=== PATIENT | female | born 1960 | race Caucasian/White ===

== ENCOUNTER 2022-12-09 10:50 | Outpatient (CLI) | payer OTHER, SELFPAY ==
--- NOTE | ~2022-12-09 | XR_ITS ---
EXAMINATION:XR_CERV2-3V_CR DATE: 12/09/2022 11:02 INDICATION: Neck pain TECHNIQUE: AP, lateral, and lateral swimmers views of the cervical spine are provided. COMPARISON: None FINDINGS: There is reversal of the normal cervical lordosis. There are 2 mm of retrolisthesis of C5 o n C6. The odontoid process is intact. No fracture is identified. There is moderate loss of interverte bral disc space height at C5-C6 and C6-7. Small degenerative osteophytes project from the anterior en dplates of multiple vertebral bodies. There is multilevel moderate facet and uncovertebral joint oste oarthritis. Prevertebral soft tissues are normal. IMPRESSION: 1. Moderate cervical spondylosis without acute findings Reviewed, dictated and finalized at location L.
== END 2022-12-09 10:51 | disposition home or self-care (01) ==
LOC: ANHBWCIMG 10:51
PROVIDERS: PCP Family Medicine; Visit Provider Nurse Practitioner Family
DX: M47.892 Other spondylosis, cervical region (principal)
CPT/HCPCS: 72040

== ENCOUNTER 2024-03-07 10:09 | Outpatient (CLI) | payer MEDICARE, SELFPAY ==
--- NOTE | ~2024-03-07 | XR_ITS ---
XR chest 2V 03/07/2024 10:17 Indication: Cough and congestion for 2 months Procedure: 2 view chest Comparison: No prior studies for comparison. Findings: Right basilar infiltrates, suspicious for pneumonia. Heart size normal. No pneumothorax. Impression: 1: Right basilar infiltrates, suspicious for pneumonia. Reviewed, dictated and finalized at location B. Impression: 1: Right basilar infiltrates, suspicious for pneumonia.
== END 2024-03-07 10:10 | disposition home or self-care (01) ==
LOC: ANHBWCIMG 10:11
PROVIDERS: PCP Family Medicine; Visit Provider Nurse Practitioner Family
DX: R05.9 Cough, unspecified (principal); R91.8 Other nonspecific abnormal finding of lung field
CPT/HCPCS: 71046

== ENCOUNTER 2024-03-15 15:13 | Outpatient (CLI) | payer MEDICARE, SELFPAY ==
--- NOTE | ~2024-03-15 | XR_ITS ---
XR hand RT min 3V Ordering provider: Chino Eddy MD History: . chronic rt 1st IP jt/ pad of thumb pain, trouble gripping . Comparison: None. FINDINGS: BONES: No acute fracture or dislocation. JOINT SPACES: Early osteoarthritic changes of the first carpometacarpal joint. SOFT TISSUES: Normal. IMPRESSION: No acute osseous abnormality right hand. Reviewed, dictated and finalized at location A.
[2024-03-15 19:18] LABS: Alanine Aminotransferase 29 U/L (6-35); Albumin Level 4.7 g/dL (3.5-5.1); Alkaline Phosphatase 65 U/L (38-126); Anion Gap 10 mmol/L (4-12); Aspartate Amino Transferase 65 U/L (14-36); Bilirubin,Total 0.4 mg/dL (0.2-1.3); Blood Urea Nitrogen 17 mg/dL (7-17); Calcium 9.3 mg/dL (8.4-10.2); Carbon Dioxide 30 mmol/L (22-30); Chloride 98 mmol/L (98-107); Estimated Glomerular Filt Rate > 60; Glucose 84 mg/dL (65-110); Sodium 138 mmol/L (137-145)
[2024-03-15 20:21] LABS: Hematocrit 41.9 % (37.0-47.0); Hemoglobin 13.7 g/dL (12.0-15.0); Mean Corpuscular HGB Conc 32.7 g/dl (32-36); Mean Corpuscular Hemoglobin 29.8 pg (26-34); Mean Corpuscular Volume 91.3 fl (80-100); Mean Platelet Volume 9.3 fl (7.4-10.4); Platelet Count Result 308 k/mm3 (150-375); Red Blood Count 4.59 M/mm3 (4.2-5.4); Red Cell Distribution Width 12.2 % (11.5-14.5); White Blood Count 10.9 K/mm3 (4.5-10.0)
== END 2024-03-15 15:14 | disposition home or self-care (01) ==
PROVIDERS: PCP Family Medicine; Visit Provider Family Medicine
DX: F06.4 Anxiety disorder due to known physiological condition (principal); F41.0 Panic disorder [episodic paroxysmal anxiety]; Z00.00 Encounter for general adult medical examination without abnormal findings; I10 Essential (primary) hypertension; R79.89 Other specified abnormal findings of blood chemistry; T78.40XA Allergy, unspecified, initial encounter; Z12.11 Encounter for screening for malignant neoplasm of colon; M79.646 Pain in unspecified finger(s)
CPT/HCPCS: 36415; 73130; 80053; 85027

== ENCOUNTER 2024-06-13 09:16 | Outpatient (CLI) | payer MEDICARE, SELFPAY | END 2024-06-13 09:17 | disposition home or self-care (01) | LOC: ANHBWCLAB 09:18 | PROVIDERS: PCP Family Medicine; Visit Provider Obstetrics & Gynecology Gynecology | DX: E55.9 Vitamin D deficiency, unspecified (principal) | CPT/HCPCS: 36415; 82306 ==

== ENCOUNTER 2024-06-21 12:46 | Outpatient (CLI) | payer MEDICARE, SELFPAY ==
--- NOTE | ~2024-06-21 | XR_ITS ---
Clinical Indication: Cough PA and lateral views of the chest: Comparison: 03/07/2024 Findings: The lungs are clear, without evidence of focal consolidation or pleural effusion. Cardiome diastinal silhouette is within normal limits. Bones and soft tissues are unremarkable. Impression: Normal chest. Reviewed, dictated and finalized at location . 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
== END 2024-06-21 12:47 | disposition home or self-care (01) ==
PROVIDERS: PCP Family Medicine; Visit Provider Nurse Practitioner Family
DX: R05.9 Cough, unspecified (principal)
CPT/HCPCS: 71046

== ENCOUNTER 2024-07-04 09:52 | Outpatient (CLI) | payer MEDICARE, SELFPAY ==
[2024-07-04 18:42] LABS: Alanine Aminotransferase 21 U/L (6-35); Albumin Level 4.4 g/dL (3.5-5.1); Alkaline Phosphatase 56 U/L (38-126); Aspartate Amino Transferase 64 U/L (14-36); Bilirubin,Total 0.7 mg/dL (0.2-1.3); Cholesterol 190 mg/dL (0-200); HDL Direct 51 mg/dL; Triglycerides 104 mg/dL (<150)
[2024-07-04 18:53] LABS: LDL Cholesterol Direct 100 mg/dL
== END 2024-07-04 09:53 | disposition home or self-care (01) ==
PROVIDERS: PCP Family Medicine; Visit Provider Family Medicine
DX: R74.01 Elevation of levels of liver transaminase levels (principal)
CPT/HCPCS: 36415; 80061; 80076

== ENCOUNTER 2024-07-09 11:46 | Outpatient (CLI) | payer MEDICARE, SELFPAY ==
[2024-07-09 13:01] LABS: Hepatitis B Surface Antigen Negative (Negative)
[2024-07-09 13:19] LABS: Hepatitis C Virus Antibody Negative (Negative)
[2024-07-09 14:18] LABS: HAV RESULT Negative (Negative); Hepatitis B Core IgM Result Negative (Negative)
== END 2024-07-09 11:47 | disposition home or self-care (01) ==
LOC: ANHLAB 11:47
PROVIDERS: PCP Family Medicine; Visit Provider Family Medicine
DX: R74.01 Elevation of levels of liver transaminase levels (principal)
CPT/HCPCS: 36415; 80074

== ENCOUNTER 2024-07-26 10:10 | Outpatient (CLI) | payer MEDICARE, SELFPAY ==
--- NOTE | ~2024-07-26 | US_ITS ---
EXAMINATION: US abdomen limited DATE: 07/26/2024 10:52 INDICATION: Abnormal liver function tests. TECHNIQUE: Multiple grayscale and Doppler ultrasound images of the abdomen were obtained. COMPARISON: None FINDINGS: The visualized portions of the head, body, and tail of the pancreas are normal. There are 1 3 mm and 9 mm hyperechoic masses in the liver. There is a 5 mm polyp in the gallbladder, likely a jose ign cholesterol polyp needing no follow-up. No visible gallstones. No gallbladder wall thickening or sonographic Lopez sign. The common duct is normal and measures 5 mm. There is normal flow in main po rtal vein. IMPRESSION: 1. Small hyperechoic liver masses. In the absence of known malignancy or chronic liver disease, these findings are likely hemangiomas. Reviewed, dictated and finalized at location A. ROBE SPECIALIST IMPRESSION: 1. Small hyperechoic liver masses. In the absence of known malignancy or chroni c liver disease, these findings are likely hemangiomas.
== END 2024-07-26 10:11 | disposition home or self-care (01) ==
PROVIDERS: PCP Family Medicine; Visit Provider Family Medicine
DX: R16.0 Hepatomegaly, not elsewhere classified (principal); R74.01 Elevation of levels of liver transaminase levels
CPT/HCPCS: 76705

== ENCOUNTER 2024-11-06 08:59 | Outpatient (CLI) | payer MEDICARE, SELFPAY ==
--- NOTE | ~2024-11-06 | US_ITS ---
EXAMINATION: US abdomen limited DATE: 11/06/2024 10:22 INDICATION: Hepatomegaly TECHNIQUE: Multiple grayscale and Doppler ultrasound images of the abdomen were obtained. COMPARISON: 07/26/2024 FINDINGS: The pancreatic head and body are normal in appearance. The pancreatic tail is not visualized. The vi sualized proximal aorta and inferior vena cava are normal. Liver has normal echogenicity and contour, with a smooth surface. No interval change in a 1.2 cm hypoechoic mass along the anterior left hepati c lobe. The second smaller hyperechoic nodule previously seen in the right hepatic lobe is not identi fied on the provided images. No intrahepatic biliary duct dilation suspected. Portal venous flow was seen in the hepatopetal, normal direction and has normal Doppler waveform. Again seen is an echogenic and nonshadowing, nonmobile polyp along the wall of the otherwise normal-appearing gallbladder which appears slightly larger than on the prior study at which time it measured 5 mm which measures up to 7 mm on the current study. Common bile duct measures 5 mm diameter which is normal. Sonographic Lisa y sign was reported as negative by the decorator hand. IMPRESSION: 1. Gallbladder polyp measuring slightly larger at 7 mm on the current study which could be due to dif ferences in technique but would recommend 6 month follow-up ultrasound. 2. Unchanged 12 mm hyperechoic hepatic lesion. A second smaller hypoechoic lesion is not identified o n the prior study. This would be most consistent with and in the absence of known malignancy or chron ic liver disease statistically most likely to represent hemangiomas. Reviewed, dictated and finalized at location B. IMPRESSION: 1. Gallbladder polyp measuring slightly larger at 7 mm on the current study whi ch could be due to differences in technique but would recommend 6 month follow- up ultrasound. 2. Unchanged 12 mm hyperechoic hepatic lesion. A second smaller hypoechoic lesi on is not identified on the prior study. This would be most consistent with and in the absence of known malignancy or chronic liver disease statistically most likely to represent hemangiomas.
--- OUTSIDE RECORDS SUMMARY | 2024-11-06 09:50 | XMS_ITS | Data Portability ---
Author [facility] Address [address] [place] [address] Assessment Encounter Date Assessment Date Assessment LastModified by Organization Details LastModified Time 08/26/2016 08/26/2016 Pap done and sent to lab and mammogram order given. Will follow up pending results, in one year or sooner if needed. [email or web address] Not available 08/26/2016 17:02:47 Plan of Treatment Reminders Order Date Submit Date Provider Last Modified By Organization Details Last Modified Time Details Appointments None recorded. Lab pap, IG + HR HPV - brush and broom used 2016 017 [facility] (Lab), [address], [place], [address], 7 15:35:42 Referral None recorded. Procedures None recorded. Surgeries None recorded. Imaging MAMMO, screening, digital, bilateral 2016 017 [email or web address] Not available 7 17:18:06 Medication Orders None recorded. Patient TargetsNo targets recorded. Patient InstructionsNo instructions recorded. Reason for Referral None Reported. Results Created Date Observation Date Name Description Value Unit Range Abnormal Flag Note LastModifiedBy Organization Detail LastModifiedTime Result Notes None recorded. Procedures Surgical History Date Name Laterality Status Provider Name and Address Organization Details Recorded Time 08/26/2016 Date of Last Pap Smear completed Ester Smith MA [facility] 08/31/2016 08:18:27 Imaging Results None recorded. Procedure Notes None recorded. Medical Equipment None Reported. Allergies Allergen ID Allergen Name Allergen Category Reaction Reaction Severity Criticality Documentation Date Start Date Code Code System Note Provider Name and Address Organization Details Recorded Time 12725 codeine medicatio n nausea Not available Not available 08/26/2016 2670 RxNorm Not Available Not Available Not Available Medications Name Sig Start Date Stop Date Status Note LastModified by Organization Details LastModified Time azithromycin 250 mg tablet active Not Available Not Availabl e Not Available sertraline 100 mg tablet active Not Available Not Available No t Available Advair Diskus 250 mcg-50 mcg/dose powder for inhalation active Not Available Not Available N ot Available azelastine 137 mcg (0.1 %) nasal spray active Not Available Not Available Not Available Vitamin D2 1,250 mcg (50,000 unit) capsule active Not Available Not Available Not Available fluticasone propionate 50 mcg/actuation nasal spray,suspensi on active Not Available Not Available Not Available Ventolin HFA 90 mcg/actuation aerosol inhaler active Not Available Not Available Not Available Vitals Date Recorded Body height Body weight Body mass index (BMI) Systolic blood pressure Diastolic blood pressure Provider Name and Address Organization Details Last Updated DateTime 08/26/2016 165.1 cm 15838.25 g 28.1 kg/m2 124 mm[Hg] 62 mm[Hg] Lacie Abernathy [place] - [facility] 7 16:20:52 Social History None recorded. Functional Status None recorded. Mental Status None recorded. Family History Relationship Description Onset Age of this Age Resolved Age Notes LastModified by Organization Details LastModified Time Father Hypertensive disorder leanne Not available 07/2017 16:21:43 Medical History Condition Response Other N High Blood Pressure N Breast Cancer N Thyroid Problems N Kidney or Bladder Problems N GI Problems N Depression N Blood Clots N Lung Disease N Acne N Breast Problem N Eating Disorder N Anemia N Anesthesia Complications N Headaches/Migraines N Anxiety Disorder N Diabetes N Ovarian Cancer N Muscle, Joint, or Bone Problems N Blood Transfusions N Seizures/Epilepsy N Polyps N Infertility N Acid Reflux (GERD) N Cancer N Abuse/Domestic Violence N Asthma N Endometriosis N High Cholesterol N Hepatitis N Liver Disease N Heart Disease N Pre-Eclampsia N Osteoporosis N Gynecological History Statement/Question Response Abnormal Pap N Sexually Active? Y On BCP's at Conception? N STIs/STDs N Date of Last Pap Smear 08/26/2016 Sexual Problems? N Most Recent Mammogram Age at First Child 21 Obstetrics History GPAL:G 3 P 0 0 0 3 Type Value Living 3 Total 3 Past Encounters Encounter ID Performer Location Encounter Start Date Encounter Closed Date Diagnosis/Indication Diagnosis SNOMED-CT Code Diagnosis ICD10 Code Diagnosis Note [id number] [facility] ([facility]) 2 [facility] [address] [place] [address] 08/26/2016 16:00:13 08/26/2016 17:18:06 Gynecologic examination 74170928 Z01.419 Screening mammography 24 456211 Z12.31 Health Concerns Section Related Observation LastModified by Organization Detai ls LastModified Time None Recorded Concern Status LastModified by Organization Details LastModified Time None Recorded Advance Directives Directive None Recorded Payers Encounter Date Sequence Insurance Name Policy Number Policy Lopez Covered Member ID Lopez Member ID Guarantor Name 08/26/2016 1 [facility] [employer] ([facility]) [id number] Sarina Grayson [id number] Sarina Grayson Notes Date Note Type Note Provider Name and Address Organization Details Recorded Time 08/26/2016 text/html Annual GYNReport ed bypatient.History: no gynecologic complaints Urinary symptoms:No hematuria; No incontinence Vulva:No genital lesion Vagina:Normal vaginal discharge Breast:No breast pain; No breast lump; No nipple discharge Current Contraception:[employer] gamous relationship Sexual complaints:No sexual complaints; No pain during intercourse; Normal libido Menopausal Symptoms:No menopausal symptoms; Normal vaginal lubrication Psychological symptoms:No depression; No anxiety; No PMDD Preventive measures:Encourage self breast examination; Encourage regular exercise; Encourage no tobacco use; Followed with Q3 year pap smear and high risk HPV typing; Needs to schedule mammogram; Up to date on colonoscopy screening Patient here for annual exam, no complaints at this time. THADDEUS Cook Attn: [address] [place], [address], [place] [facility] 08/26/2016 17:03:07 OBGyn Episode No OBEpisode recorded.
--- OUTSIDE RECORDS SUMMARY | 2024-11-06 09:50 | XMS_ITS | Referral Summary ---
Author Organization [facility] Address [address] [place] [address] Care Team Providers Care Life Skills Teacher Name Role Phone Lissett Mackey MD Primary Care Provi josefina Encounters Date Type Department Care Team Description 09/06/2024 12:15 PM FIRST PRESS OPERATOR Office Visit [facility] [address] [place] [address] [address] [place] [id number] Lisa Hummel MD Actinic keratosis (Primary Dx); History of nonmelanoma skin cancer; Multiple benign nevi; Epidermal cyst; Hypertrophic scar from Last 3 Months Allergies Active Allergy Reactions Criticality Noted Date Comments Codeine Nausea only,Vomiting Reaction: Nausea, Vomiting, Sulfa (Sulfonamide Antibiotics) Nausea only,Vomiting Reaction: Nausea, Vomiting, Medications calcium carbonate-vit D3-min 600 mg calcium- 400 unit tablet Take one by mouth two times per day 0 0 8 Active ergocalciferol (VITAMIN D) 50,000 unit capsule 1 cap twice a week 8 capsule 3 7 Active azelastine (ASTELIN) 137 mcg (0.1 %) nasal spray USE TWO SPRAYS IN EACH NOSTRIL TWO TIMES A DAY DIRECTED 90 mL 3 0 Active Additional Information Patient not taking.Reported on 11/24/2021 fluticasone propionate (FLONASE) 50 mcg/actuation nasal spray USE 2 INHALATIONS IN EACH NOSTRIL DAILY 48 g 3 2 Active albuterol HFA (PROVENTIL HFA,VENTOLIN HFA,PROAIR HFA) 90 mcg/actuation inhaler USE 2 INHALATIONS EVERY 4 HOURS NEEDED FOR WHEEZING OR SHORTNESS OF BREATH 25.5 g 6 2 Active Advair Diskus 250-50 mcg/dose diskus inhaler USE 1 INHALATION TWICE A DAY, RINSE MOUTH WITH WATER AFTER USE, DO NOT SWALLOW 3 each 3 2 Active sertraline (ZOLOFT) 100 mg tablet TAKE 1 TABLET DAILY 90 tablet 3 2 Active Additional Information Patient taking differently: Takes 1/2 tab daily, Reported on 11/24/2021 hydroCHLOROthi azide (HYDRODIURIL) 12.5 mg tablet Take 1 tablet (12.5 mg total) by mouth daily 90 tablet 3 2 Active doxycycline hyclate (VIBRAMYCIN) 50 mg capsule Take 1 capsule (50 mg total) by mouth 2 (two) times a day 60 capsule 5 3 Active ivermectin 1 % cream Apply to the face once daily at bedtime 45 g 11 3 Active NOT IN DATABASE, PRESCRIPTION, Rx code 7658 Ivermectin 1% Metronidazole 1% Niacinamide 4% cream Apply to AA of face QHS 30 each 11 4 Active Active Problems Problem Noted Date Diagnosed Date Other fatigue 11/24/2021 Assessment & Plan (11/24/2021 1:52 PM CDT): Discussed fatigue with obg and agreed to tsh and Cbc to eval cmp nl Right maxillary sinusitis 07/20/2021 Assessment & Plan (07/20/2021 11:44 AM FIRST PRESS OPERATOR): r retro orbital pain saw Optho and told neg. esxam , has had recurrent sinus issue in past and with weather see on and off butthis is different and new with netg eye eval Will lempirically treat and irf ongoing despiiiite antibiotcs and or back then scan and seee If can proved/ given recurrent issue And nprior rec's for sinus surgery suggewst medrol as well as augmentin to abort and see if can clear . Cont nsal spray And nose rinse BMI 24.0-24.9, adult 07/20/2021 Assessment & Plan (11/24/2021 1:44 PM CDT): Work to keep wt stable Assessment & Plan (07/20/2021 11:46 AM FIRST PRESS OPERATOR): Work to keep down Chronic ethmoidal sinusitis 07/17/2020 Assessment & Plan (07/17/2020 3:58 PM FIRST PRESS OPERATOR): Avoid ear cleaning techniques Avoid water to ears Endoscopic bilateral Total Ethmoidectomy Endoscopic bilateral Maxillary Antrostomy Stealth Image guidance Risks and complications include anesthesia, bleeding, infection, injury to surrounding structures including brain with csf leak, eyes with vision changes, nasal mucosa, atrophic rhinitis, benign versus malignant pathology, no guarantee that sense of smell will return, need for further surgery. She will call back to schedule Consider Astelin 2 sprays into each nostril while looking down over the sink, do not sniff in or blow nose after use for at least 30 minutes in the PM Bilateral hearing loss 03/20/2020 Assessment & Plan (03/20/2020 11:02 AM CDT): Hearing test Avoid ear cleaning techniques Avoid water to ears Consider CT sinus Chronic sinusitis 03/20/2020 Assessment & Plan (03/20/2020 11:06 AM CDT): Hearing test Avoid ear cleaning techniques Avoid water to ears Consider CT sinus Flonase 2 sprays into each nostril while looking down over the sink, do not sniff in or blow nose after use for at least 30 minutes Could change to Astelin 2 sprays into each nostril while looking down over the sink, do not sniff in or blow nose after use for at least 30 minutes twice daily Microscopic hematuria 07/10/2019 Overview (07/10/2019): Urine checks back to 2013 that are in ehr show a steady presence of chemical and rbc's presnet without changes gibven stable s cabral see now reason to gloria unless see a increawe abouve nl range for her. Check yr'ly the urine for montioring. Assessment & Plan (03/19/2020 6:21 PM CDT): Repeat urine clear Assessment & Plan (07/10/2019 9:16 AM FIRST PRESS OPERATOR): Unrine checks back to 2013 stable presence of chemical and rbc blood in approx same amounts no changes and no iseu without evolution or worsening would cont to monigtor for changes and proceded to wwroup then but until just moniotr Encounter for hepatitis C sc reening test for low risk patient 12/29/2018 Assessment & Plan (12/29/2018 8:29 AM CDT): Add to next lab Colon cancer screening 12/29/2018 Assessment & Plan (09/17/2020 4:22 PM FIRST PRESS OPERATOR): Up to date with lottieuaomer Assessment & Plan (07/10/2019 9:24 AM FIRST PRESS OPERATOR): cologuard due and issue about pending but order Assessment & Plan (12/29/2018 8:30 AM CDT): cologuard due in fall on or after 07/02 Essential hypertension 07/13/2018 Assessment & Plan (11/24/2021 1:46 PM CDT): The bp at home good and bring in with nov . Keep meds sameHypertension, Medical treament revolves around weight control, salt management, and meds when necessary. long as weight loss is necessary and you are able to drop weight we can cont to monitor the blood pressure and not add meds. Once the weight is not changing then it becomes nesessary to add meds to be able to reach the goal bp. Assessment & Plan (07/20/2021 11:45 AM FIRST PRESS OPERATOR): bp controled on meds and no chags Hypertension, Medical treament revolves around weight control, salt management, and meds when necessary. long as weight loss is necessary and you are able to drop weight we can cont to monitor the blood pressure and not add meds. Once the weight is not changing then it becomes nesessary to add meds to be able to reach the goal bp. Assessment & Plan (09/17/2020 4:17 PM FIRST PRESS OPERATOR): The bp on higher side and will go To hctz 25 and stop the lisinopril 2.5. Hypertension, Medical treament revolves around weight control, salt management, and meds when necessary. long as weight loss is necessary and you are able to drop weight we can cont to monitor the blood pressure and not add meds. Once the weight is not changing then it becomes nesessary to add meds to be able to reach the goal bp. Assessment & Plan (03/19/2020 6:21 PM CDT): gthe bp good and n o changds in medsHypertension, Medical treament revolves around weight control, salt management, and meds when necessary. long as weight loss is necessary and you are able to drop weight we can cont to monitor the blood pressure and not add meds. Once the weight is not changing then it becomes nesessary to add meds to be able to reach the goal bp. Assessment & Plan (07/10/2019 9:12 AM FIRST PRESS OPERATOR): bp pcontrolled with meds and no changes and Self check monthlyHypertension, Medical treament revolves around weight control, salt management, and meds when necessary. long as weight loss is necessary and you are able to drop weight we can cont to monitor the blood pressure and not add meds. Once the weight is not changing then it becomes nesessary to add meds to be able to reach the goal bp. Assessment & Plan (12/29/2018 8:26 AM CDT): The bp dr coatesp nicely and will cont both meds. If drop wt monitor bp with option to stop the lisinopril if se mid 110-120Hypertension, Medical treament revolves around weight control, salt management, and meds when necessary. long as weight loss is necessary and you are able to drop weight we can cont to monitor the blood pressure and not add meds. Once the weight is not changing then it becomes nesessary to add meds to be able to reach the goal bp. Assessment & Plan (11/14/2018 8:22 AM CDT): bp still up and has been losing wt. Encouraged to cont to drop wt And stay on the hctz. Add lisinopril 2.5 and watch for cough and recheck bp. Check bmp prior , option to go to 2 at a atime if bp stil up the 2wks before seenHypertension, Medical treament revolves around weight control, salt management, and meds when necessary. long as weight loss is necessary and you are able to drop weight we can cont to monitor the blood pressure and not add meds. Once the weight is not changing then it becomes nesessary to add meds to be able to reach the goal bp. Assessment & Plan (08/23/2018 11:37 AM FIRST PRESS OPERATOR): Recommend DASH diet, heart healthy lifestyle, exercise. Discussed the risks of hypertension. Assessment & Plan (07/13/2018 2:04 PM FIRST PRESS OPERATOR): Several bp's up some and at about same. Start low dose hctz 12.5 and start at 3 times a weekl; recheck bp and bmp in6 wks or soHypertension, Medical treament revolves around weight control, salt management, and meds when necessary. long as weight loss is necessary and you are able to drop weight we can cont to monitor the blood pressure and not add meds. Once the weight is not changing then it becomes nesessary to add meds to be able to reach the goal bp. Mixed hearing loss, bilateral 04/11/2018 Assessment & Plan (12/29/2018 8:28 AM CDT): Feels tube added helps hearing. Using astelin and flonase and told to stay on if not having surgery. And will stay on . Discussed what the two do. Mild persistent asthma without complication 03/2017 Assessment & Plan (11/24/2021 1:47 PM CDT): Asthma good with meds and keep same and needs advair. And stay on . albutero on and off. Asthma is the excess production of secretions and reactivity/twitchiness of the breathing / bronchial tubes. This can be chronic ,acute on chronic or episodic(acute).Inhaled materials in the form of pollutants( gaseous or particles) pollens ,exercise or infections that are usually viral. Some people never have issues unless they get a cold /flu. Some are mainly induced by exercise.If you have a regular need (read nearly daily use or need) of a rescue inhaler like albuterol you should be started on or use your controller inhaler/medicines..There is a place for episodic steroid use for those who have had or are having a fairly severe spell.There is a need for regular use of controller meds(usually steroid containing inhalers) for those who are proven to have a chronically obstructed breathing pattern. If you feel you are getting worse then an urgent visit to the er is in order or at least a return to the clinic for a re-evaluation of your meds/treament. Assessment & Plan (07/20/2021 11:45 AM FIRST PRESS OPERATOR): No changs in asthma wich can be a nssue if a sinus ifection . Asthma is the excess production of secretions and reactivity/twitchiness of the breathing / bronchial tubes. This can be chronic ,acute on chronic or episodic(acute).Inhaled materials in the form of pollutants( gaseous or particles) pollens ,exercise or infections that are usually viral. Some people never have issues unless they get a cold /flu. Some are mainly induced by exercise.If you have a regular need (read nearly daily use or need) of a rescue inhaler like albuterol you should be started on or use your controller inhaler/medicines..There is a place for episodic steroid use for those who have had or are having a fairly severe spell.There is a need for regular use of controller meds(usually steroid containing inhalers) for those who are proven to have a chronically obstructed breathing pattern. If you feel you are getting worse then an urgent visit to the er is in order or at least a return to the clinic for a re-evaluation of your meds/treament. Assessment & Plan (09/17/2020 4:11 PM FIRST PRESS OPERATOR): Asthma intermittnet need for proventil and cont to use adnf stay on daily advair. And the cat in the house not to your benefit and ideally not to be t here Assessment & Plan (03/19/2020 6:26 PM CDT): Doing gfreat compared to long in pst no breakthru gets fall flu shots uses advair Daily spirl with fvc 2.99 and 96% and fev1 2.15 and 86% and fev1% 72% mild obstrouctive defect cont with albuterol around fall flu shots Stay on advair as Stooping it with breathing nupur mildly obstructive would expect to see it get worse. Asthma is the excess production of secretions and reactivity/twitchiness of the breathing / bronchial tubes. This can be chronic ,acute on chronic or episodic(acute).Inhaled materials in the form of pollutants( gaseous or particles) pollens ,exercise or infections that are usually viral. Some people never have issues unless they get a cold /flu. Some are mainly induced by exercise.If you have a regular need (read nearly daily use or need) of a rescue inhaler like albuterol you should be started on or use your controller inhaler/medicines..There is a place for episodic steroid use for those who have had or are having a fairly severe spell.There is a need for regular use of controller meds(usually steroid containing inhalers) for those who are proven to have a chronically obstructed breathing pattern. If you feel you are getting worse then an urgent visit to the er is in order or at least a return to the clinic for a re-evaluation of your meds/treament. Assessment & Plan (07/10/2019 9:18 AM FIRST PRESS OPERATOR): No rescue med unless cold /uri or this daniel rare use. On daily Use and no use of 500 unles uri and Might need in feb when tends to get. [place] nl witth fvc 91 and fev1 87 and fev1% 77 nl. optino to reduce to 1/2 the advair and monitor effect and stay there to increase for c/o fallflu shot. Assessment & Plan (12/29/2018 8:27 AM CDT): Stable and cont meds and check sariah on return Assessment & Plan (11/14/2018 8:28 AM CDT): Stable and cont meds. Asthma is the excess production of secretions and reactivity/twitchiness of the breathing / bronchial tubes. This can be chronic ,acute on chronic or episodic(acute).Inhaled materials in the form of pollutants( gaseous or particles) pollens ,exercise or infections that are usually viral. Some people never have issues unless they get a cold /flu. Some are mainly induced by exercise.If you have a regular need (read nearly daily use or need) of a rescue inhaler like albuterol you should be started on or use your controller inhaler/medicines..There is a place for episodic steroid use for those who have had or are having a fairly severe spell.There is a need for regular use of controller meds(usually steroid containing inhalers) for those who are proven to have a chronically obstructed breathing pattern. If you feel you are getting worse then an urgent visit to the er is in order or at least a return to the clinic for a re-evaluation of your meds/treament. Assessment & Plan (07/13/2018 2:10 PM FIRST PRESS OPERATOR): Active use of advair and needs occasional step up to 500 size. clinicallyl mildly obstructive today sprio with fvc 82 and fev1 82 with fev1/fvc 81. Nl. cobnt present course. reviewd other inhalers but none have the ability to add in the h8igh dose advair 500 so will stay here for nowe. Assessment & Plan (06/22/2017 2:18 PM FIRST PRESS OPERATOR): Stay on reg daily use of advair and push to twice a day at Sign of a cold., early start of prednisone if not holding youAsthma is the excess production of secretions and reactivity/twitchiness of the breathing / bronchial tubes. This can be chronic ,acute on chronic or episodic(acute).Inhaled materials in the form of pollutants( gaseous or particles) pollens ,exercise or infections that are usually viral. Some people never have issues unless they get a cold /flu. Some are mainly induced by exercise.If you have a regular need (read nearly daily use or need) of a rescue inhaler like albuterol you should be started on or use your controller inhaler/medicines..There is a place for episodic steroid use for those who have had or are having a fairly severe spell.There is a need for regular use of controller meds(usually steroid containing inhalers) for those who are proven to have a chronically obstructed breathing pattern. If you feel you are getting worse then an urgent visit to the er is in order or at least a return to the clinic for a re-evaluation of your meds/treament.scriopt for 50/500 to use for cold. Flairs. PE (physical exam), annual 06/22/2017 Assessment & Plan (11/24/2021 1:51 PM CDT): Well eam low fall risk depression screen neg and scores 0 cognitive screen nl.hada flu and covid sh ots. Up to date on dtap. Nan yo==up to date cologuard up to date. Assessment & Plan (09/17/2020 4:21 PM FIRST PRESS OPERATOR): Low fall risk derpireons screen neg cog sdcreen neg up to date on tdap, cologuard up to date. Suggest shingles shot series and p shot series. Lose wtr as poaned Assessment & Plan (07/10/2019 9:23 AM FIRST PRESS OPERATOR): Healthy female up to date on marely getting cologuard. Cmp/hep c neg ldl at 96 and hdl 54 great. a1c at 5.4 and 5.6 juper limits all nl the urie screens stable with micro blod at 5-10 and hem + mod for per records go back and felt present in past as stable no added workup and moniotr Assessment & Plan (07/13/2018 2:08 PM FIRST PRESS OPERATOR): colopguard 06/30 and good till next yr. Marely athis spring and ee' bundle wrapper. bmd nl this yr. Flu shot already. longterm few lbs off. Screening lipids with ldl at 90,cmp and cbc nl. tsh nl at 2.49. Assessment & Plan (06/22/2017 2:10 PM FIRST PRESS OPERATOR): Marely this Spring and nl check yrly. bmd 3-4 yrs aago and thin and suggest checking with nov. Vit d good but on [id number] vit d a week And staythere.fall flu shot Vitamin D deficiency 06/22/2017 Assessment & Plan (09/17/2020 4:12 PM FIRST PRESS OPERATOR): Level in 120's and off. Several ways to go told by md to s top and chec in 2montohs and check versus stop for a am onth and restart at one amonth and check on over all you need on somethig but monitor Assessment & Plan (06/22/2017 2:12 PM FIRST PRESS OPERATOR): At 50 on meds from bundle wrapper and stay there History of nonmelanoma skin cancer 04/22/2017 Hemangioma of skin 01/16/2016 Atopic rhinitis 12/29/2013 Overview (11/18/2016): ALLERGIC RHINITIS NOS Assessment & Plan (07/17/2020 4:40 PM FIRST PRESS OPERATOR): Avoid ear cleaning techniques Avoid water to ears Endoscopic bilateral Total Ethmoidectomy Endoscopic bilateral Maxillary Antrostomy Stealth Image guidance Risks and complications include anesthesia, bleeding, infection, injury to surrounding structures including brain with csf leak, eyes with vision changes, nasal mucosa, atrophic rhinitis, benign versus malignant pathology, no guarantee that sense of smell will return, need for further surgery. Consider Astelin 2 sprays into each nostril while looking down over the sink, do not sniff in or blow nose after use for at least 30 minutes in the PM Assessment & Plan (06/22/2017 2:07 PM FIRST PRESS OPERATOR): Using meds and stable Anxiety 12/19/2012 Overview (11/17/2016): Anxiety Assessment & Plan (03/19/2020 6:27 PM CDT): zoloft working and feels has Grown up a lot as well stay on Assessment & Plan (07/10/2019 9:14 AM FIRST PRESS OPERATOR): Low dose zoloft and feels from menapause has seen less issue and The zoloft has been her vitamin for ?20 yrs + Discussed stopiong tiesha once winter over to try cutting in 2 and after weeks not able to tell Difference then stop it but wants to st ay with for now. friend brought up issue of associate dementia with use and discussed. brook stay with Assessment & Plan (06/22/2017 2:09 PM FIRST PRESS OPERATOR): Doing well on 50. Asks about stopping but later feels will flair if of. I would have to agree that risk is real given hx in past and would suggest tstaying on the 1/2 or 50 and optnio to go to whyoel if issues Disorder of bone and cartilage 12/19/2012 Overview (11/19/2016): BONE & CARTILAGE DIS NOS Assessment & Plan (06/22/2017 1:59 PM FIRST PRESS OPERATOR): bmd 2012 mild osteopenia or thin. As this long should consier repeating. ? With nov or evelcative. usuallly do in relation to o.v.stay on d with recheck up to o52 and daily d working. Basal cell carcinoma (BCC) of face 07/13/2012 Actinic keratosis 06/17/2012 Resolved Problems Problem Noted Date Diagnosed Date Resolved Date BMI 26.0-26.9,adult 06/22/2017 07/20/20 21 Assessment & Plan (09/17/2020 4:08 PM FIRST PRESS OPERATOR): Work to keep wt stable Assessment & Plan (03/19/2020 6:27 PM CDT): Work to keep wt stable Assessment & Plan (12/29/2018 8:27 AM CDT): Work to drop Assessment & Plan (07/13/2018 2:05 PM FIRST PRESS OPERATOR): Stable at mild elevated levels. Any drop would help limit med needed Assessment & Plan (06/22/2017 2:09 PM FIRST PRESS OPERATOR): Being over weight is dealt with by restriction of you daily calories and increasing your calorie needs with increases in your work load/exercises or just increases in daily activity. There are different programs for weight loss and they all are felt to be relatively equally effective and you can make a choice as to what works for you. Hordeolum 04/22/2017 07/13/2018 Keratosis, senilis 01/16/2016 8 Photoaged skin 04/06/2014 07/13/2018 Asthma 12/29/2013 06/22/2017 Overview (11/18/2016): ASTHMA NOS Infectious warts 03/10/2013 07/13/2018 Skin neoplasm 06/17/2012 07/10/2019 Immunizations Immunization Administration Dates Next Due Influenza, Quadrivalent, Spl it, Preservative Free, Intradermal 06/03/2015 Influenza, Quadrivalent, Spl it, Preservative Free, Intramuscular 05/22/2020 Influenza, Trivalent, IM (MDV) 05/16/2021 Influenza, Unspecified 05/31/2019,06/01/2018 Pfizer SARS-CoV-2 Monovalent Vaccination (12+ Yrs) PURPLE 09/01/2020 Tdap 03/08/2018 Social History Tobacco Use Types Packs/Day Years Used Date Smoking Tobacco: Never Smokeless Tobacco: Never Alcohol Use Standard Drinks/Week Comments Yes 0 (1 standard drink = 0.6 oz pur e alcohol) PHQ-2 Answer Date Recorded PHQ-2 Total Score (If total score is 3 or more points, staff should administer the PHQ-9) 0 11/24/2021 Comments No Sex and Gender Information Value Date Recorded Sex Assigned at Not on file Legal Sex Female 11:52 PM FIRST PRESS OPERATOR Gender Identity Female 12/05/2018 2:26 PM CDT Sexual Orientation Not on file Last Filed Vital Signs Vital Sign Reading Time Taken Comments Blood Pressure 126/76 11/24/2021 1:39 PM CDT Pulse 68 11/24/2021 1:39 PM CDT Temperature 36.1 C (96.9 F) 07/17/2020 3:24 PM FIRST PRESS OPERATOR Respiratory Rate 16 11/24/2021 1:39 PM CDT Oxygen Saturation 99% 03/08/2018 8:08 AM CDT Inhaled Oxygen Concentration - - Weight 67.8 kg (149 lb 6.4 oz) 11/24/2021 1:24 P M CDT Height 163.8 cm (5' 4.5 ) 11/24/2021 1:24 PM CDT Body Mass Index 25.25 11/24/2021 1:24 PM CDT Plan of Treatment Not on file Procedures Procedure Name Priority Date/Time Associated Diagnosis Comments DEXA AXIAL SKELETON BONE DENSITY 1 OR MORE SITES Schedule Routine, Read Routine (OP Routine) 03/03/2021 2:55 PM CDT Asymptomatic menopausal state SCREENING MAMMOGRAM BILATERAL W ANKIT Schedule Routine, Read Routine (OP Routine) 03/03/2021 2:48 PM CDT Encounter for screening mammogram for malignant neoplasm of breast HM DNA STOOL Routine 08/04/2019 HEPATITIS C ANTIBODY Routine 05/25/2019 8:13 AM CDT Encounter for hepatitis C screening test for low risk patient HM PAP SMEAR WITH HPV Routine 12/13/2018 from Last 3 Months or Most Recently Relevant to Health Maintenance Results * Dexa Axial Skeleton Bone Density 1 or 2 Site (03/03/2021 2:55 PM CDT) Anatomical Region Laterality Modality Body N/A Other 03/03/2021 3:49 PM CDT Narrative 03/03/2021 3:50 PM CDT EXAM DESCRIPTION: DEXA AXIAL SKELETON BONE DENSITY 1 OR MORE SITES REASON FOR STUDY: Post-menopausal female, screening for osteoporosis. 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 LEFT HIP: Current Total BMD is 0.880 g/cm2 T-score is -0.5 Most recent prior Total BMD was 0.848 g/cm2 There has been a 3.7% increase in BMD which is statistically significant. Current femoral neck BMD is 0.754 g/cm2 T-score is -0.9 IMPRESSION: Normal bone mineral density by WHO criteria. REFERENCE: Bone mineral density: Normal (T-score above or = -1.0) Low bone mass (T-score between -1.0 and -2.5) replaces the previously used term osteopenia Osteoporosis (T-score = or below -2.5) Medical evaluation for secondary causes of low bone mineral density may be appropriate. FRAX is a World Health Organization validated fracture risk assessment tool that calculates a person's 10 year probability of a major osteoporosis related fracture and hip fracture. According to the National Osteoporosis Foundation guidelines, postmenopausal women and men age 50 or older with low bone mass and a 10 year probability of a major osteoporosis related fracture = or greater than 20% or a 10 year probability of a hip fracture = or greater than 3% should be considered for treatment. For further information, including treatment recommendations, please refer to the 2013 ISCD Official Positions (http://www.iscd.org) and the NOF's Clinician's Guide to Prevention and Treatment of Osteoporosis (http://www.nof.org/professionals/clinical-guidelines) THIS IS AN ELECTRONICALLY VERIFIED FINAL REPORT 03/03/2021 3:50 PM - Electronically signed by Willi Hernandez M.D. 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 LEFT HIP: Current Total BMD is 0.880 g/cm2 T-score is -0.5 Most recent prior Total BMD was 0.848 g/cm2 There has been a 3.7% increase in BMD which is statisticallysignificant. Current femoral neck BMD is 0.754 g/cm2 T-score is -0.9 IMPRESSION: Normal bone mineral density by WHO criteria. REFERENCE: Bone mineral density: Normal (T-score above or = -1.0) Low bone mass (T-score between -1.0 and -2.5) replaces thepreviously used term osteopenia Osteoporosis (T-score = or below -2.5) Medical evaluation for secondary causes of low bone mineral density may be appropriate. FRAX is a World Health Organization validated fracture risk assessmenttool that calculates a person's 10 year probability of a major osteoporosisrelated fracture and hip fracture. According to the National OsteoporosisFoundation guidelines, postmenopausal women and men age 50 or older with low bonemass and a 10 year probability of a major osteoporosis related fracture = or greater than 20% or a 10 year probability of a hip fracture = or greaterthan 3% should be considered for treatment. For further information, including treatment recommendations, please referto the 2013 ISCD Official Positions (http://www.iscd.org) and the NOF's Clinician's Guide to Prevention and Treatment of Osteoporosis (http://www.nof.org/professionals/clinical-guidelines) THIS IS AN ELECTRONICALLY VERIFIED FINAL REPORT 03/03/2021 3:50 PM - Electronically signed by Willi Hernandez M.D. AB: Report ID: [id number] Reading Location: [place] [address] us Rachel Gallardo MD IM DXA PROCEDURES Final Result * Screening Mammogram Bilateral W Ankit (03/03/2021 2:48 PM CDT) Anatomical Region Laterality Modality Breast Bilateral Mammography 03/03/2021 3:14 PM CDT Impressions 03/03/2021 3:14 PM CDT There is no mammographic evidence of malignancy. Routine screening mammography is recommended in 1 year. BI-RADS: 1 - Negative. The patient will be entered into a reminder system with a target due date of 1 year for her next mammogram. Electronically signed by: Willi Hernandez M.D. Narrative 03/03/2021 3:14 PM CDT EXAMINATION: SCREENING MAMMOGRAM BILATERAL W ANKIT ORDERING HEALTHCARE PROVIDER: RACHEL GALLARDO HISTORY: Routine screening mammography. COMPARISON: 02/28/2020, 10/31/2018, 10/10/2017, 10/06/2016. TECHNIQUE: CC and MLO views of the bilateral breasts were obtained with digital technique using breast tomosynthesis with C view. Computer aided detection was utilized. FINDINGS: DENSITY: There are scattered fibroglandular elements in the bilateral breasts. BREASTS: There are no suspicious masses, suspicious calcifications, or other suspicious findings in either breast. There has been no suspicious interval change. Rachel Gallardo MD IMG MAMMO PROCEDURES Fin al Result * DNA STOOL (08/04/2019) COLOGUARD Normal Historical Provider HEALTH MAINTENANCE Final Result * Hepatitis C antibody (05/25/2019 8:13 AM CDT) Hep C Ab Negative Negative SHELBI FERNANDEZ ([place]) Comment:Testing performed by : [facility], [address] [place] [address]., [id number] Blood specimen (specimen) 05/25/2019 8:13 AM CDT 05/25/2019 3:10 PM CDT Lissett Mackey MD LAB MICROBIOLOGY - GENERAL ORDERABLES Final Result SHELBI FERNANDEZ ([place]) [address] [place] [address] * PAP SMEAR WITH HPV (12/13/2018) Pap smear Unknown Historical Provider HEALTH MAINTENANCE Final Result from Last 3 Months or Most Recently Relevant to Health Maintenance Insurance AN[employer] CHOICE [employer] MEDICARE ADVANTAGE [place] [address] Care Teams Life Skills Teacher Relationship Specialty Start Date End Date Lissett Mackey MD PCP - General 10/06/16
--- OUTSIDE RECORDS SUMMARY | 2024-11-06 09:50 | XMS_ITS | Clinical Summary ---
Author Organization [facility] Address [address] [place] [address] Phone Care Team Providers Care Mortgage Advisor Name Role Phone Chino Eddy MD Primary Care Provider [phone] Social History Tobacco Use Types Packs/Day Years Used Date Smoking Tobacco: Never Assessed Comments Unknown Sex and Gender Information Value Date Recorded Sex Assigned at Not on file Legal Sex Female 10:29 PM CDT Gender Identity Not on file Sexual Orientation Not on file Plan of Treatment Health Maintenance Due Date Last Done Comments DEXA Bone Density 1960 Hepatitis C Virus (HCV) Screening 1960 Colonoscopy 2003 Colorectal Cancer Screening 2003 Cologuard 2008 Immunochemical Fecal Occult Blood 2008 Pneumococcal Immunization (50+ years) (1 of 1 - PCV) 2008 Influenza Immunization (#1) 2024 09/0 01/2022, 05/16/2021, 05/22/2020, Additional history exists SARS-COV-2 Immunization ( season) 2024 05/22/2021, 09/19/2020, 09/01/2020 Mammogram 05/04/2024 05/04/2023, 04/16, 03/11/2022 Respiratory Syncytial Virus (RSV) Immunization (Adult) (1 - 1-dose 75+ series) 2033 DTaP/Tdap/Td Immunization Discontinued 03/08/2018 TdaP Immunization Completed 03/08/2018 Zoster Immunization Completed 09/26/2022, 2 Hepatitis B Immunization Aged Out No longer eligible based on patient's age to complete this topic Meningococcal Immunization (ACWY) Aged Out No longer eligible based on patient's age to complete this topic Rotavirus Immunization Aged Out No lo nger eligible based on patient's age to complete this topic Insurance MEDICA Care Teams Mortgage Advisor Relationship Specialty Start Date End Date Chino Eddy MD [address] [place] [id number] PCP - General Family Medicine 05/16/23
--- OUTSIDE RECORDS SUMMARY | 2024-11-06 09:50 | XMS_ITS | Clinical Summary ---
Author Organization [facility] Address [address] [place] [address] Care Team Providers Care Home Companion Name Role Phone Lissett Mackey MD Primary Care Provi josefina Allergies Active Allergy Reactions Criticality Noted Date [...] 07/20/2021 Assessment & Plan (07/20/2021 11:44 AM CALL OUT OPERATOR): r retro orbital pain saw Optho [...] stable Assessment & Plan (07/20/2021 11:46 AM CALL OUT OPERATOR): Work to keep down Chronic ethmoidal sinusitis 07/17/2020 Assessment & Plan (07/17/2020 3:58 PM CALL OUT OPERATOR): Avoid ear cleaning techniques Avoid water [...] clear Assessment & Plan (07/10/2019 9:16 AM CALL OUT OPERATOR): Unrine checks back to 2013 stable [...] 12/29/2018 Assessment & Plan (09/17/2020 4:22 PM CALL OUT OPERATOR): Up to date with windy Assessment & Plan (07/10/2019 9:24 AM CALL OUT OPERATOR): cologuard due and issue about pending [...] bp. Assessment & Plan (07/20/2021 11:45 AM CALL OUT OPERATOR): bp controled on meds and no [...] bp. Assessment & Plan (09/17/2020 4:17 PM CALL OUT OPERATOR): The bp on higher side and [...] bp. Assessment & Plan (07/10/2019 9:12 AM CALL OUT OPERATOR): bp pcontrolled with meds and no [...] bp. Assessment & Plan (08/23/2018 11:37 AM CALL OUT OPERATOR): Recommend DASH diet, heart healthy lifestyle, exercise. Discussed the risks of hypertension. Assessment & Plan (07/13/2018 2:04 PM CALL OUT OPERATOR): Several bp's up some and at [...] meds/treament. Assessment & Plan (07/20/2021 11:45 AM CALL OUT OPERATOR): No changs in asthma wich can [...] meds/treament. Assessment & Plan (09/17/2020 4:11 PM CALL OUT OPERATOR): Asthma intermittnet need for proventil and [...] meds/treament. Assessment & Plan (07/10/2019 9:18 AM CALL OUT OPERATOR): No rescue med unless cold /uri or this daniel rare use. On daily Use and no use of 500 unles uri and Might need in feb when tends to get. [place] nl witth fvc 91 and fev1 87 [...] meds/treament. Assessment & Plan (07/13/2018 2:10 PM CALL OUT OPERATOR): Active use of advair and needs occasional step up to 500 size. clinicallyl mildly obstructive today sprio with fvc 82 and fev1 82 with fev1/fvc 81. Nl. cobnt present course. reviewd other inhalers but none have the ability to add in the h8igh dose advair 500 so will stay here for nowe. Assessment & Plan (06/22/2017 2:18 PM CALL OUT OPERATOR): Stay on reg daily use of [...] date. Assessment & Plan (09/17/2020 4:21 PM CALL OUT OPERATOR): Low fall risk derpireons screen neg cog sdcreen neg up to date on tdap, cologuard up to date. Suggest shingles shot series and p shot series. Lose wtr as poaned Assessment & Plan (07/10/2019 9:23 AM CALL OUT OPERATOR): Healthy female up to date on [...] moniotr Assessment & Plan (07/13/2018 2:08 PM CALL OUT OPERATOR): colopguard 06/30 and good till next yr. 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 bmd nl this yr. Flu shot already. FDC few lbs off. Screening lipids with ldl at 90,cmp and cbc nl. tsh nl at 2.49. Assessment & Plan (06/22/2017 2:10 PM CALL OUT OPERATOR): Marely this Spring and nl check yrly. bmd 3-4 yrs aago and thin and suggest checking with nov. Vit d good but on [id number] vit d a week And staythere.fall flu shot Vitamin D deficiency 06/22/2017 Assessment & Plan (09/17/2020 4:12 PM CALL OUT OPERATOR): Level in 120's and off. 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 and stay there History of nonmelanoma skin cancer 04/22/2017 Hemangioma of skin 01/16/2016 Atopic rhinitis 12/29/2013 Overview (11/18/2016): ALLERGIC RHINITIS NOS Assessment & Plan (07/17/2020 4:40 PM CALL OUT OPERATOR): Avoid ear cleaning techniques Avoid water [...] PM Assessment & Plan (06/22/2017 2:07 PM CALL OUT OPERATOR): Using meds and stable Anxiety 12/19/2012 Overview (11/17/2016): Anxiety Assessment & Plan (03/19/2020 6:27 PM CDT): zoloft working and feels has Grown up a lot as well stay on Assessment & Plan (07/10/2019 9:14 AM CALL OUT OPERATOR): Low dose zoloft and feels from menapause has seen less issue and The zoloft has been her vitamin for ?20 yrs + Discussed stopiong tiesha once winter over to try cutting in 1/2 and after weeks not able to tell Difference then stop it but wants to st ay with for now. friend brought up issue of associate dementia with use and discussed. brook stay with Assessment & Plan (06/22/2017 2:09 PM CALL OUT OPERATOR): Doing well on 50. Asks about [...] NOS Assessment & Plan (06/22/2017 1:59 PM CALL OUT OPERATOR): bmd 2012 mild osteopenia or thin. [...] 21 Assessment & Plan (09/17/2020 4:08 PM CALL OUT OPERATOR): Work to keep wt stable Assessment & Plan (03/19/2020 6:27 PM CDT): Work to keep wt stable Assessment & Plan (12/29/2018 8:27 AM CDT): Work to drop Assessment & Plan (07/13/2018 2:05 PM CALL OUT OPERATOR): Stable at mild elevated levels. Any drop would help limit med needed Assessment & Plan (06/22/2017 2:09 PM CALL OUT OPERATOR): Being over weight is dealt with [...] warts 03/10/2013 07/13/2018 Skin neoplasm 06/17/2012 07/10/2019 Encounters Date Type Department Care Team Description 09/06/2024 12:15 PM CALL OUT OPERATOR Office Visit [facility] D[facility] [address] [place] [address] [address] [place] [address] Lisa Hummel MD Actinic keratosis (Primary Dx); History of nonmelanoma skin cancer; Multiple benign nevi; Epidermal cyst; Hypertrophic scar from Last 3 Months Immunizations Immunization Administration Dates Next Due Influenza, Quadrivalent, Spl it, Preservative Free, Intradermal 06/03/2015 Influenza, Quadrivalent, Spl it, Preservative Free, Intramuscular 05/22/2020 Influenza, Trivalent, IM (MDV) 05/16/2021 Influenza, Unspecified 05/31/2019,06/01/2018 Pfizer SARS-CoV-2 Monovalent Vaccination (12+ Yrs) PURPLE 09/01/2020 Tdap 03/08/2018 Surgical History Surgery Date Site/Laterality Comments OTHER SURGICAL HISTORY 08/15/2012 - 08/14/2013 DEPRESSIVE DISORDER NEC: MYRINGOTOMY W/ TUBES Placed at different times. over a year ago BREAST BIOPSY 08/15/1999 - 08/14/2000 Right benign bx done in dr office Medical History Medical History Date Comments Hx Other Medical 01-BALE SEWER Asthma Asthma Hx Other Medical DEPRESSIVE DISO RDER NEC; Comments: Lissett Mackey MD; Outcome: Resolved from Problem List Family History Medical History Relation Name Comments Other Brother 2 Alive and well; Other Father Alive and well; Colon cancer Mother Cancer -colon; Other Mother Alive and well; Breast cancer Mother's Sister Breast cancer Paternal Grandmother Breast cancer Sister Relation Name Status Comments Brother 1 Alive Brother 2 Father Alive Mother Alive Mother's Sister Paternal Grandmother Sister Social History Tobacco Use Types Packs/Day Years [...] on file Legal Sex Female 11:52 PM CALL OUT OPERATOR Gender Identity Female 12/05/2018 2:26 PM CDT Sexual Orientation Not on file Obstetrics History Para Term AB IAB SAB Ectopic Multiple Livin g Live Births 4 3 3 Date Outcome GA Total Labor Labor/2nd/3rd Weight Sex Type Anes PTL Teresa A1 A5 Name Clin Term Term Term Last Filed Vital Signs Vital Sign Reading Time Taken Comments Blood Pressure 126/76 11/24/2021 1:39 PM CDT Pulse 68 11/24/2021 1:39 PM CDT Temperature 36.1 C (96.9 F) 07/17/2020 3:24 PM CALL OUT OPERATOR Respiratory Rate 16 11/24/2021 1:39 PM CDT Oxygen Saturation 99% 03/08/2018 8:08 AM CDT Inhaled Oxygen Concentration - - Weight 67.8 kg (149 lb 6.4 oz) 11/24/2021 1:24 P M CDT Height 163.8 cm (5' 4.5 ) 11/24/2021 1:24 PM CDT Body Mass Index 25.25 11/24/2021 1:24 PM CDT Plan of Treatment Health Maintenance Due Date Last Done Comments Hepatitis B Screening 1976 Pneumococcal vaccine 65+ (1 of 2 - PCV) 1977 Zoster Vaccine (1 of 2) 2008 Breast Cancer Screening-Mammogram 03/03/2022 03/03/2021, 02/28/2020, 10/31/2018, Additional history exists Colon Cancer Screening-DNA Stool 08/04/2022 08/04/2019, 07/26/2019, 07/02/2016, Additional history exists Depression Screening 11/24/2022 11/24/2021, 07/20/2021, 09/17/2020, Additional history exists Fall Risk Assessment 11/24/2022 11/24/2021, 07/20/2021, 09/17/2020, Additional history exists Osteoporosis Screening-Bone Density Scan 03/03/2023 03/03/2021, 11/29/2017, 12/22/2012, Additional history exists Well Visit 65+ 2023 11/24/2021, 06/16, 07/13/2018, Additional history exists Covid-19 Vaccine (2023-2 5 season) 2024 05/22/2021, 09/19/2020, 09/01/2020 Influenza Vaccine (#1) 2024 , 05/22/2020, 05/31/2019, Additional history exists DTaP/Tdap/Td Vaccine (2 - Td or Tdap) 03/08/2028 03/08/2018 Cervical Cancer Screening Discontinued 12/13/2018 Hepatitis C Screening Completed 05/25/2019 Procedures Procedure Name Priority Date/Time Associated Diagnosis [...] FOR STUDY: Post-menopausal female, screening for osteoporosis. 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 AB: Report ID: [id number] Reading Location: [id number] Procedure Note Willi Hernandez MD - 03/03/2021 EXAM DESCRIPTION: DEXA AXIAL SKELETON BONE DENSITY 1 OR MORE SITES REASON FOR STUDY: Post-menopausal female, screening for osteoporosis. 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 AB: Report ID: [id number] Reading Location: [place] [address] Rachel Gallardo MD IMG DXA PROCEDURES Final Result * Screening Mammogram [...] Hep C Ab Negative Negative SHELBI FERNANDEZ ([place]) Comment:Testing performed by : [facility], [address] [place] [address], [place]., [address] Blood specimen (specimen) 05/25/2019 8:13 AM CDT 05/25/2019 3:10 PM CDT Lissett Mackey MD LAB MICROBIOLOGY - GENERAL ORDERABLES Final Result SHELBI FERNANDEZ ([place]) [address] [place] [address] * PAP SMEAR WITH HPV (12/13/2018) HM Pap smear Unknown us Historical Provider MD HEALTH MAINTENANCE Final Result from Last 3 Months or Most Recently Relevant to Health Maintenance Insurance [facility] [employer] CHOICE [facility] MEDICARE ADVANTAGE [facility] MEDICARE ADVANTAGE Care Teams Home Companion Relationship Specialty Start Date End Date Lissett Mackey MD PCP - General 10/06/16
--- OUTSIDE RECORDS SUMMARY | 2024-11-06 09:50 | XMS_ITS ---
Author Organization [facility] Address [address] [place] [address] Care Team Providers Care Upper Leather Sorter Name Role Phone Jj Mackey MD Primary Care Provi josefina Active Problems Problem Noted Date Diagnosed Date Other fatigue 11/24/2021 Assessment & Plan (11/24/2021 1:52 PM CDT): Discussed fatigue with obg and agreed to tsh and Cbc to eval cmp nl Right maxillary sinusitis 07/20/2021 Assessment & Plan (07/20/2021 11:44 AM DRAWING TRACER): r retro orbital pain saw Optho and [...] stable Assessment & Plan (07/20/2021 11:46 AM DRAWING TRACER): Work to keep down Chronic ethmoidal sinusitis 07/17/2020 Assessment & Plan (07/17/2020 3:58 PM DRAWING TRACER): Avoid ear cleaning techniques Avoid water to [...] clear Assessment & Plan (07/10/2019 9:16 AM DRAWING TRACER): Unrine checks back to 2013 stable presence [...] 12/29/2018 Assessment & Plan (09/17/2020 4:22 PM DRAWING TRACER): Up to date with widny Assessment & Plan (07/10/2019 9:24 AM DRAWING TRACER): cologuard due and issue about pending but [...] bp. Assessment & Plan (07/20/2021 11:45 AM DRAWING TRACER): bp controled on meds and no chags [...] bp. Assessment & Plan (09/17/2020 4:17 PM DRAWING TRACER): The bp on higher side and will [...] bp. Assessment & Plan (07/10/2019 9:12 AM DRAWING TRACER): bp pcontrolled with meds and no changes [...] bp. Assessment & Plan (08/23/2018 11:37 AM DRAWING TRACER): Recommend DASH diet, heart healthy lifestyle, exercise. Discussed the risks of hypertension. Assessment & Plan (07/13/2018 2:04 PM DRAWING TRACER): Several bp's up some and at about [...] meds/treament. Assessment & Plan (07/20/2021 11:45 AM DRAWING TRACER): No changs in asthma wich can be [...] meds/treament. Assessment & Plan (09/17/2020 4:11 PM DRAWING TRACER): Asthma intermittnet need for proventil and cont [...] meds/treament. Assessment & Plan (07/10/2019 9:18 AM DRAWING TRACER): No rescue med unless cold /uri or this daniel rare use. On daily Use and no use of 500 unles uri and Might need in feb when tends to get. Paul nl witth fvc 91 and fev1 87 and fev1% 77 nl. optino to reduce to 1/2 the advair and monitor effect and stay there to increase for c/o fallflu shot. Assessment & Plan (12/29/2018 8:27 AM CDT): Stable and cont meds and check paul on return Assessment & Plan (11/14/2018 8:28 [...] meds/treament. Assessment & Plan (07/13/2018 2:10 PM DRAWING TRACER): Active use of advair and needs occasional step up to 500 size. clinicallyl mildly obstructive today sprio with fvc 82 and fev1 82 with fev1/fvc 81. Nl. cobnt present course. reviewd other inhalers but none have the ability to add in the h8igh dose advair 500 so will stay here for nowe. Assessment & Plan (06/22/2017 2:18 PM DRAWING TRACER): Stay on reg daily use of advair [...] date. Assessment & Plan (09/17/2020 4:21 PM DRAWING TRACER): Low fall risk derpireons screen neg cog sdcreen neg up to date on tdap, cologuard up to date. Suggest shingles shot series and p shot series. Lose wtr as poaned Assessment & Plan (07/10/2019 9:23 AM DRAWING TRACER): Healthy female up to date on kimani getting cologuard. Cmp/hep c neg ldl at 96 and hdl 54 great. a1c at 5.4 and 5.6 juper limits all nl the urie screens stable with micro blod at 5-10 and hem + mod for per records go back and felt present in past as stable no added workup and moniotr Assessment & Plan (07/13/2018 2:08 PM DRAWING TRACER): colopguard 06/30 and good till next yr. Kimani athis spring and ee' steel roller. bmd nl this yr. Flu shot already. manager intermediate few lbs off. Screening lipids with ldl at 90,cmp and cbc nl. tsh nl at 2.49. Assessment & Plan (06/22/2017 2:10 PM DRAWING TRACER): Kimani this Spring and nl check yrly. bmd 3-4 yrs aago and thin and suggest checking with nov. Vit d good but on [id number] vit d a week And staythere.fall flu shot Vitamin D deficiency 06/22/2017 Assessment & Plan (09/17/2020 4:12 PM DRAWING TRACER): Level in 120's and off. Several ways to go told by md to s top and chec in 2montohs and check versus stop for a am onth and restart at one amonth and check on over all you need on somethig but monitor Assessment & Plan (06/22/2017 2:12 PM DRAWING TRACER): At 50 on meds from steel roller and stay there History of nonmelanoma skin cancer 04/22/2017 Hemangioma of skin 01/16/2016 Atopic rhinitis 12/29/2013 Overview (11/18/2016): ALLERGIC RHINITIS NOS Assessment & Plan (07/17/2020 4:40 PM DRAWING TRACER): Avoid ear cleaning techniques Avoid water to [...] PM Assessment & Plan (06/22/2017 2:07 PM DRAWING TRACER): Using meds and stable Anxiety 12/19/2012 Overview (11/17/2016): Anxiety Assessment & Plan (03/19/2020 6:27 PM CDT): zoloft working and feels has Grown up a lot as well stay on Assessment & Plan (07/10/2019 9:14 AM DRAWING TRACER): Low dose zoloft and feels from menapause [...] with Assessment & Plan (06/22/2017 2:09 PM DRAWING TRACER): Doing well on 50. Asks about stopping but later feels will flair if of. I would have to agree that risk is real given hx in past and would suggest tstaying on the 1/2 or 50 and optnio to go to whyoel if issues Disorder of bone and cartilage 12/19/2012 Overview (11/19/2016): BONE & CARTILAGE DIS NOS Assessment & Plan (06/22/2017 1:59 PM DRAWING TRACER): bmd 2012 mild osteopenia or thin. As this long should consier repeating. ? With nov or evelcative. usuallly do in relation to o.v.stay on d with recheck up to o52 and daily d working. Basal cell carcinoma (BCC) of face 07/13/2012 Actinic keratosis 06/17/2012 Current Treatment and Therapy Plans No current plan information found. Past Treatment and Therapy Plans No past plan information found. Lifetime Dose Tracking * Chemical Lifetime Dose Automatic Entry Manual Entr y DLP 666 mGycm 666 mGycm 0 mGycm Resolved Problems Problem Noted Date Diagnosed Date Resolved Date BMI 26.0-26.9,adult 06/22/2017 07/20/20 21 Assessment & Plan (09/17/2020 4:08 PM DRAWING TRACER): Work to keep wt stable Assessment & Plan (03/19/2020 6:27 PM CDT): Work to keep wt stable Assessment & Plan (12/29/2018 8:27 AM CDT): Work to drop Assessment & Plan (07/13/2018 2:05 PM DRAWING TRACER): Stable at mild elevated levels. Any drop would help limit med needed Assessment & Plan (06/22/2017 2:09 PM DRAWING TRACER): Being over weight is dealt with by [...]
--- OUTSIDE RECORDS SUMMARY | 2024-11-06 09:50 | XMS_ITS | Clinical Summary ---
Author Organization [facility] Address [address] [place] [address] Care Team Providers Care Enrollment Specialist Name Role Phone Chino Eddy MD Primary Care Provider [phone] Source Comments [facility],non-owned Affiliates and Associated Physician Practices is amultiple site organization consisting of ambulatory clinics and hospital sitesin [place], [place] and [place]. This disclosure is being madepursuant to the Care Everywhere program and may not contain all information available regarding this patient. Last updated 18.[facility] Allergies Active Allergy Reactions Criticality Noted Date Comments Codeine Nausea and/or Vomiting Medium 07/30/2022 Medications * Be aware that medications may not be up to date on this document. Alwaysverify current medications with the patient. Medication Sig Dispensed Refills Start Date End Date Status fluticasone-salmeter ol (Advair/Wixela) 250-50 MCG/ACT inhaler Inhale 1 (one) puff by mouth as directed Active albuterol HFA (Proventil; Ventolin; Proair) 108 (90 Base) MCG/ACT inhaler Inhale 1 (one) puff by mouth as directed 09/22/2021 Active ergocalciferol (Drisdol) 1.25 MG (72267 UT) capsule Take 1 (one) capsule by mouth as directed Active sertraline (Zoloft) 50 MG tablet Take 1 (one) tablet by mouth as directed 06/16/2022 Active metroNIDAZOLE, topical, (Metrocream) 0.75 % cream Apply 1 applicator to affected area 2 times daily 12/15/2022 Active Advair HFA 230-21 MCG/ACT Inhale 1 g by mouth as directed 10/12/2022 Active Active Problems No known active problems Immunizations Name Administration Dates Next Due INFLUENZA VACCINE, TRIV. (AF LURIA, FLUZONE TRIVALENT; 6MO+) (IIV3) 05/16/2021 Covid BitWine primary monoval ent 12+ yr 0.3mL Purple cap 05/22/2021,09/19/2020,09/01/2020 FLU VACCINE QUAD IIV4 PF ID 06/03/2015 INFLUENZA VACCINE 05/31/2019,06/01/2018 INFLUENZA VACCINE, QUADR. (F LUZONE; FLULAVAL; FLUARIX; AFLURIA QUADRIVALENT; 6MO+), 0.5 ML (IIV4) 05/22/2020 TDAP (7yrs+) 03/08/2018 Family History Medical History Relation Name Comments Hypertension Brother Hearing Loss - Congenital Father Hypertension Father Cancer - Breast Mother Cancer - Other Mother Cancer - Breast Paternal Aunt Cancer - Breast Paternal Grandmother Cancer - Breast Sister age 46 Cancer - Other Sister Hearing Loss - Congenital Sister Hypertension Sister Relation Name Status Comments Brother Father Mother Paternal Aunt Paternal Grandmother Sister Social History Tobacco Use Types Packs/Day Years Used Date Smoking Tobacco: Never Smokeless Tobacco: Never Alcohol Use Standard Drinks/Week Comments Yes 1 (1 standard drink = 0.6 oz pur e alcohol) 3 monthly Sex and Gender Information Value Date Recorded Sex Assigned at Not on file Gender Identity Not on file Sexual Orientation Not on file Last Filed Vital Signs Vital Sign Reading Time Taken Comments Blood Pressure 147/93 07/30/2022 1:08 PM OFFICE ADMINISTRATION INSTRUCTOR Pulse 56 07/30/2022 1:08 PM OFFICE ADMINISTRATION INSTRUCTOR Temperature - - Respiratory Rate - - Oxygen Saturation - - Inhaled Oxygen Concentration - - Weight 67.6 kg (149 lb) 06/12/2024 1:49 PM CDT Height 165.1 cm (5' 5 ) 06/12/2024 1:49 PM CDT Body Mass Index 24.79 06/12/2024 1:49 PM CDT Plan of Treatment Upcoming Encounters Date Type Department Care Team (Late st Contact Info) Description 01/16/2025 11:00 AM CDT Office Visit [facility] - ENT [address], [address] [place] [address] Andriy Raymundo MD [address] [place] [address] 05/22/2025 10:30 AM CDT Testing Visit [facility] - ENT [address], [address] [place] [address] Azul Hurst, AuD [id number] [place] [address] 05/22/2025 11:00 AM CDT Office Visit [facility] - YAS [address], [address] [place] [address] Azul Hurst, AuD [address] [place] [address] Health Maintenance Due Date Last Done Comments COLON MONITORING 1958 COLONOSCOPY - COLON CA SCREENING 1958 CT COLONOGRAPHY - COLON CA SCREENING 1958 FIT - COLON CA SCREENING 1958 FLEX SIG - COLON CA SCREENING 1958 LIPID TESTING 1958 HEPATITIS C SCREENING 10/06/1976 PNEUMOCOCCAL VACCINE 50+ (1 of 1 - PCV) 2008 ZOSTER VACCINE (1 of 2) 2008 COVID-19 VACCINE ( - 2023- season) 2024 05/22/2021, 09/19/2020, 09/01/2020 INFLUENZA VACCINE (#1) 2024 , 05/22/2020, 05/31/2019, Additional history exists DEPRESSION SCREENING 08/15/2024 MEDICARE AWV CALENDAR YEAR 2024 COLOGUARD (AGES 45-75) - COLON CA SCREENING 07/29/2025 07/29/2022 Colorectal Cancer Screening 07/29/2025 MAMMOGRAM 06/12/2026 06/12/2024, 04/16, 03/11/2022, Additional history exists DTAP/TDAP/TD VACCINES (2 - Td or Tdap) 03/08/2028 03/08/2018 Respiratory Syncytial Virus (RSV) Vaccine Pt: or over 60 yrs (1 - 1-dose 75+ series) 2033 BONE DENSITY TESTING Completed 06/12/2024, 03/03/2021, 11/29/2017, Additional history exists HEPATITIS B VACCINE Aged Out No longe r eligible based on patient's age to complete this topic HIB VACCINE Aged Out No longer eligi ble based on patient's age to complete this topic HPV VACCINE Aged Out No longer eligi ble based on patient's age to complete this topic MENINGOCOCCAL (Group B) VACCINE SHARED DECISION-MAKING Aged Out No longer eligible based on patient's age to complete this topic MENINGOCOCCAL GROUPS A/C/Y/W VACCINE Aged Out No longer eligible based on patient's age to complete this topic Procedures Procedure Name Priority Date/Time Associated Diagnosis Comments DEXA BONE DENSITY AXIAL SKELETON Routine 06/12/2024 2:27 PM CDT Postmenopause MAMMO BILAT SCREENING W ANKIT Routine 06/12/2024 2:03 PM CDT Encounter for screening mammogram for malignant neoplasm of breast from Last 3 Months or Most Recently Relevant to Health Maintenance Results * DEXA BONE DENSITY AXIAL SKELETON (06/12/2024 2:27 PM CDT) Anatomical Region Laterality Modality Mammography 06/12/2024 2:56 PM CDT Narrative 06/12/2024 2:56 PM CDT BONE MINERAL DENSITY STUDY INDICATION: Postmenopausal FINDINGS: The average bone mineral density from L1 to L4 is 1.380 g/cm2. T-score is 1.5 which is the standard deviations (SD) of the mean for the young adult. The Z-score is 3.0 which is the standard deviations for the mean for age matched control. The average bone mineral density of the left femoral neck is 0.859 g/cm2. T-score is -1.3. Z-score is 0.1. ASSESSMENT: Osteopenic bone mineral density FRAX FRACTURE RISK ASSESSMENT: Risk factors: None. 10 Year Probability Of Fracture -Major Osteoporotic: 8.7% -Hip: 0.8% -Comparison population: [place], A major osteoporotic fracture is defined as a fracture of the spine, forearm, hip or shoulder. WORLD HEALTH ORGANIZATION DEFINITIONS OSTEOPENIA = -1 TO -2.5 SD BELOW T-SCORE OSTEOPOROSIS = LESS THAN -2.5 SD BELOW T-SCORE 1. No significant- < 1 SD below T score 2. Mild - 1 -2.0 SD below T-score 3. Moderate - 2 -2.5 SD below T-score 4. Significant - > 2.5 SD below T-score > Interpreting Provider: Aleksandra Summers MD on 06/12/2024 2:56 PM Procedure Note Aleksandra Summers MD - 06/12/2024 BONE MINERAL DENSITY STUDY INDICATION: Postmenopausal FINDINGS: The average bone mineral density from L1 to L4 is 1.380 g/cm2. T-scoreis 1.5 which is the standard deviations (SD) of the mean for the youngadult. The Z-score is 3.0 which is the standard deviations for the mean forage matched control. The average bone mineral density of the left femoral neck is 0.859 g/cm2. T-score is -1.3. Z-score is 0.1. ASSESSMENT: Osteopenic bone mineral density FRAX FRACTURE RISK ASSESSMENT: Risk factors: None. 10 Year Probability Of Fracture -Major Osteoporotic: 8.7% -Hip: 0.8% -Comparison population: [place], A major osteoporotic fracture is defined as a fracture of the spine, forearm, hip or shoulder. WORLD HEALTH ORGANIZATION DEFINITIONS OSTEOPENIA = -1 TO -2.5 SD BELOW T-SCORE OSTEOPOROSIS = LESS THAN -2.5 SD BELOW T-SCORE 1. No significant- < 1 SD below T score 2. Mild - 1 -2.0 SD below T-score 3. Moderate - 2 -2.5 SD below T-score 4. Significant - > 2.5 SD below T-score > Interpreting Provider: Aleksandra Summers MD on 06/12/2024 2:56 PM Rachel Gallardo MD DEXA ORDERABLES * Mammo Bilat Screening W Ankit (06/12/2024 2:03 PM CDT) Anatomical Region Laterality Modality Breast Bilateral Mammography 06/12/2024 4:26 PM CDT Impressions 06/12/2024 4:28 PM CDT IMPRESSION: Annual screening mammography is recommended. OVERALL FINAL ASSESSMENT: BI-RADS Category 1: Negative. > Interpreting Provider: Malcolm Veras MD on 06/12/2024 4:28 PM Narrative 06/12/2024 4:28 PM CDT EXAMINATION: BILATERAL DIGITAL SCREENING MAMMOGRAM AND BILATERAL BREAST TOMOSYNTHESIS HISTORY: Screening. COMPARISON: Serial examinations dating back to October 31, 2018. TECHNIQUE: BILATERAL digital breast tomosynthesis (DBT) and synthetic 2D digital mammogram images were obtained (bilateral craniocaudal and mediolateral oblique projections) including computer aided detection (CAD.) BREAST PARENCHYMAL COMPOSITION:Category B: There are scattered areas of fibroglandular density. MAMMOGRAM FINDINGS: There is no suspicious finding in either breast. Rachel Gallardo MD MAMMO ORDERABLES from Last 3 Months or Most Recently Relevant to Health Maintenance Care Teams Enrollment Specialist Relationship Specialty Start Date End Date Chino Eddy MD [address] [place] [id number] PCP - General Family Medicine 12/31/22
--- OUTSIDE RECORDS SUMMARY | 2024-11-06 09:50 | XMS_ITS | Encounter Summary ---
Author Organization [facility] Healthcare Address [address] [place] [address] Care Team Providers Care Internet Systems Administrator Name Role Phone Jj Mackey MD Primary Care Provi josefina Reason for Visit * Reason Onset Date Comments Scheduling Appointments 03/02/2021 Confirmi ng mammogram appt Encounter Details Date Type Department Care Team (Late st Contact Info) Description 03/02/2021 Telephone [facility] [address] [place] [id number] [address] Yane[address], [place] Scheduling Appointments (Confirming mammogram appt) Social History Tobacco Use Types Packs/Day Years Used Date Smoking Tobacco: Never Smokeless Tobacco: Never Alcohol Use Standard Drinks/Week Comments Yes 0 (1 standard drink = 0.6 oz pur e alcohol) PHQ-2 Answer Date Recorded PHQ-2 Total Score (If total score is 3 or more points, staff should administer the PHQ-9) 0 09/17/2020 Comments No Sex and Gender Information Value Date Recorded Sex Assigned at Not on file Legal Sex Female 11:52 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
== END 2024-11-06 09:00 | disposition home or self-care (01) ==
PROVIDERS: PCP Family Medicine; Visit Provider Family Medicine
DX: R16.0 Hepatomegaly, not elsewhere classified (principal); K82.4 Cholesterolosis of gallbladder
CPT/HCPCS: 76705

== ENCOUNTER 2025-04-05 07:31 | Outpatient (CLI) | payer MEDICARE, SELFPAY ==
--- NOTE | ~2025-04-05 | US_ITS ---
US abdomen limited EXAMINATION: US Abdomen limited INDICATION: Hepatomegaly PROCEDURE: Realtime High Resolution abdomen ultrasound. COMPARISON: 11/06/2024 and 07/26/2024 FINDINGS: Visualized pancreas is unremarkable. Visualized aorta is not aneurysmal. Portal vein demonstrates hepatopedal flow. Grossly stable 7 mm gallbladder wall polyp. No liver lesions are identified. No Lopez's sign. Visualized inferior vena cava and abdominal aorta are unremarkable. IMPRESSION: 1: Grossly stable 7 mm gallbladder wall polyp. A follow-up abdominal ultrasound in 6 months is recommended. 2. No liver lesions identified in the current study. Reviewed, dictated and finalized at location Q.
[2025-04-05 08:40] LABS: Hematocrit 40.2 % (37.0-47.0); Hemoglobin 13.4 g/dL (12.0-15.0); Immature Granulocyte Percent A 0.1 % (0-0.5); Lymphocytes Absolute Auto 1.65 K/mm3 (0.9-3.2); Mean Corpuscular HGB Conc 33.3 g/dl (32-36); Mean Corpuscular Hemoglobin 29.5 pg (26-34); Mean Corpuscular Volume 88.4 fl (80-100); Nucleated Red Blood Cells Absolute Auto 0.000 K/mm3 (0.0-0.012); Nucleated Red Blood Cells Perc 0.0 % (0.0-0.2); Platelet Count Result 233 k/mm3 (150-375); Red Blood Count 4.55 M/mm3 (4.2-5.4); White Blood Count 7.9 K/mm3 (4.5-10.0)
[2025-04-05 09:00] LABS: Alanine Aminotransferase 19 U/L (6-35); Albumin Level 4.4 g/dL (3.5-5.1); Alkaline Phosphatase 53 U/L (38-126); Anion Gap 6 mmol/L (4-12); Aspartate Amino Transferase 36 U/L (14-36); Bilirubin,Total 0.4 mg/dL (0.2-1.3); Blood Urea Nitrogen 15 mg/dL (7-17); Calcium 9.5 mg/dL (8.4-10.2); Carbon Dioxide 30 mmol/L (22-30); Chloride 103 mmol/L (98-107); Estimated Glomerular Filt Rate > 60; Glucose 98 mg/dL (65-110); Magnesium 2.1 mg/dL (1.6-2.3); Potassium 4.3 mmol/L (3.4-5.0); Sodium 139 mmol/L (137-145); Total Protein 7.0 g/dL (6.3-8.2)
[2025-04-05 09:55] LABS: Vitamin B12 588.0 pg/mL (239-931)
== END 2025-04-05 07:32 | disposition home or self-care (01) ==
PROVIDERS: PCP Family Medicine; Visit Provider Family Medicine
DX: R16.0 Hepatomegaly, not elsewhere classified (principal); K82.4 Cholesterolosis of gallbladder; I10 Essential (primary) hypertension; J45.41 Moderate persistent asthma with (acute) exacerbation; R74.01 Elevation of levels of liver transaminase levels; F06.4 Anxiety disorder due to known physiological condition; F41.0 Panic disorder [episodic paroxysmal anxiety]; R79.89 Other specified abnormal findings of blood chemistry; T78.40XA Allergy, unspecified, initial encounter
CPT/HCPCS: 36415; 76705; 80053; 82172; 82607; 83735; 85025